=== PATIENT | male | born 2000 | race Two or more races ===

== ENCOUNTER 2020-11-18 14:30 | Emergency (ER) | payer MEDICAID ==
[~2020-11-18] VITALS: Ht 172.7 cm; Wt 77.1 kg
[2020-11-18 14:32] VITALS: BP_SYST 150
[2020-11-18] MEDS ORDERED: BACI15OI13 TP ×2 (14:53→15:03)
[2020-11-18] MEDS ORDERED: ACETAMINOPHEN 325 MG TABLET PO ONE (15:00)
[2020-11-18] MEDS ORDERED: BACITRACIN 1 GM OINT TP ONE (15:00)
[2020-11-18 15:18] VITALS: BP_SYST 165
== END 2020-11-18 15:18 | disposition home or self-care (01) ==
LOC: SED 14:30
DX: S00.01XA Abrasion of scalp, initial encounter (principal); Z79.899 Other long term (current) drug therapy; W20.8XXA Other cause of strike by thrown, projected or falling object, initial encounter; Y93.89 Activity, other specified; Y92.89 Other specified places as the place of occurrence of the external cause; Y99.8 Other external cause status
CPT/HCPCS: 99282